=== PATIENT | female | born 1995 | race African-American/Black ===

== ENCOUNTER 2017-08-25 19:28 | Emergency (ER) | payer OTHER ==
[~2017-08-25 19:28] MED LIST: B12-1CHW CHEW; FERR1TAB36 PO; IBUP-232 PO
[2017-08-25 19:31] VITALS: BP 110/56; PULSE 87; RESP 16; TEMP 98.6; O2SAT 100
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
[2017-08-25] MEDS ORDERED: CYCL5TAB PO (21:29)
[2017-08-25] MEDS ORDERED: CYCLOBENZAPRINE HCL 10 MG TAB PO ONE (21:30)
== END 2017-08-25 22:01 | disposition home or self-care (01) ==
LOC: NEPD 19:28
DX: F32.9 Major depressive disorder, single episode, unspecified (principal); T14.8XXA Other injury of unspecified body region, initial encounter; X50.9XXA Other and unspecified overexertion or strenuous movements or postures, initial encounter; Y93.F9 Activity, other caregiving; Y92.129 Unspecified place in nursing home as the place of occurrence of the external cause; Y99.0 Civilian activity done for income or pay
CPT/HCPCS: 99283

== ENCOUNTER 2017-11-21 14:22 | Inpatient (IN) | payer MEDICAID, OTHER ==
[~2017-11-21] VITALS: Ht 160 cm; Wt 51.5 kg
[~2017-11-21 14:22] MED LIST changes: -B12-1CHW CHEW; +CYCL5TAB PO; -FERR1TAB36 PO; -IBUP-232 PO
[2017-11-21 15:38] LABS: AUTOMATED NEUTROPHIL # 1.8 TH/MM3 (1.8-7.7); BASOPHIL # 0.1 TH/MM3 (0-0.2); BASOPHIL % 1.4 % (0.0-2.0); EOSINOPHIL # 0.6 TH/MM3 (0-0.4); EOSINOPHIL % 12.9 % (0.0-4.0); HEMATOCRIT 29.4 % (35.0-46.0); LYMPH % 40.2 % (9.0-44.0); LYMPHOCYTE # 1.9 TH/MM3 (1.0-4.8); MEAN CELL VOLUME 74.3 FL (80.0-100.0); MEAN CORPUSCULAR HEMOGLOBIN 22.8 PG (27.0-34.0); MEAN CORPUSCULAR HGB CONC 30.7 % (32.0-36.0); MEAN PLATELET VOLUME 7.6 FL (7.0-11.0); MONO % 6.1 % (0.0-8.0); MONOCYTE # 0.3 TH/MM3 (0-0.9); NEUT % 39.4 % (16.0-70.0); PLATELET COUNT 435 TH/MM3 (150-450); RED BLOOD COUNT 3.96 MIL/MM3 (4.00-5.30); RED CELL DISTRIBUTION WIDTH 18.9 % (11.6-17.2); WHITE BLOOD COUNT 4.6 TH/MM3 (4.0-11.0)
[2017-11-21 15:50] LABS: BACTERIA, URINE OCC /hpf; BILIRUBIN, URINE NEG (NEG); BLOOD, URINE SMALL (NEG); GLUCOSE,URINE NEG (NEG); KETONE, URINE NEG (NEG); MUCUS URINE MANY /lpf (OCC); NITRITE,URINE NEG (NEG); SQUAMOUS EPITHELIAL CELL URINE 5 /hpf (0-5); URINE COLOR YELLOW (YELLW/STRAW); URINE LEUKOCYTE ESTERASE NEG (NEG)
[2017-11-21 15:53] LABS: ALBUMIN 3.9 GM/DL (3.4-5.0); ALT (GPT) 25 U/L (9-42); AST (GOT) 23 U/L (16-38); BICARBONATE 24.5 MEQ/L (21.0-32.0); BLOOD UREA NITROGEN 9 MG/DL (7-18); CALCIUM 8.9 MG/DL (8.5-10.1); CHLORIDE 106 MEQ/L (98-107); CREATININE 0.52 MG/DL (0.50-1.00); GLOMERULAR FILTRATION RATE 182 ML/MIN (>89); GLUCOSE,RANDOM 85 MG/DL (74-106); SODIUM (NA) 139 MEQ/L (136-145)
[2017-11-21 15:55] LABS: ALKALINE PHOSPHATASE 60 U/L (45-117); TOTAL BILIRUBIN ADULT 0.2 MG/DL (0.2-1.0); TOTAL PROTEIN 8.5 GM/DL (6.4-8.2)
[2017-11-21 15:57] LABS: ACETAMINOPHEN LESS THAN 2.0 MCG/ML (10.0-30.0)
--- NOTE | 2017-11-21 16:25 | PD ---
HPI Chief Complaint: Psychiatric Symptoms Time Seen by Provider: 14:46 Travel History International Travel<30 days: No Contact w/Intl Traveler<30days: No Traveled to known affect area: No History of Present Illness HPI 21-year-old female presents to the emergency department under Coulter act. She was Coulter acted by [facility] physician. According to the Coulter act reports the patient was "very tearful during the visit. The patient plan she would like to wreck her vehicle and to cause . She also states in the last year she has cut herself to harm herself and attempted to jump from a second-story window but her brother interrupted her and she didn't do it. She states several times during the exam she feels she has no purpose in life and feels she will be better ." Patient does admit to attempting suicide in the past. Says she was going to jump from a second story window. She reports being suicidal at this time. She says she doesn't have a current plan. Denies homicidal ideations. Says she hears herself talking to herself in her head. Denies visual hallucinations. Reports smoking marijuana. Denies tobacco or EtOH. Reports feeling depressed. Symptoms are aggravated by "everything." No known relieving factors. Symptoms are severe. Currently on menses. Has no current emergent medical complaints. No known allergies. No other modifying factors or associated signs and symptoms. PFSH Past Medical History Anemia: Yes Asthma: Yes Diminished Hearing: No Immunizations Current: Yes Social History Alcohol Use: No Tobacco Use: No Substance Use: Yes (Cannabis) Allergies-Medications (Allergen,Severity, Reaction): Coded Allergies: No Known Allergies (Verified , 08/25/17) Reported Meds & Prescriptions Reported Meds & Active Scripts Active Flexeril (Cyclobenzaprine HCl) 5 Mg Tab 5 Mg PO TID Review of Systems Except as stated in HPI: all other systems reviewed are Neg Physical Exam Narrative GENERAL: Well-nourished, well-developed black female patient, in no acute distress SKIN: Warm and dry. HEAD: Atraumatic. Normocephalic. EYES: Pupils equal and round. ENT: Mucosa pink and moist. NECK: Supple. Trachea midline. CARDIOVASCULAR: Regular rate and rhythm. No murmur appreciated. RESPIRATORY: No accessory muscle use. Clear to auscultation. Breath sounds equal bilaterally. GASTROINTESTINAL: Abdomen soft, non-tender, nondistended. Hepatic and splenic margins not palpable. Bowel sounds are active 4 quadrants. MUSCULOSKELETAL: No obvious deformities. No clubbing. No cyanosis. No edema. BACK: No CVA tenderness. NEUROLOGICAL: Awake and alert. No obvious cranial nerve deficits. Motor grossly within normal limits. Normal speech. Moves all extremities. 5/5 strength to all extremities. PSYCHIATRIC: Flat affect No delusional thought processes. No hallucinations. Data Data Orders Orders Complete Blood Count With Diff (11/21/17 14:44) Comprehensive Metabolic Panel (11/21/17 14:44) Urinalysis - C+S If Indicated (11/21/17 14:44) Ed Urine Pregnancytest Poc (11/21/17 14:44) Psych Screen (11/21/17 14:44) Drug Screen, Random Urine (11/21/17 14:44) Alcohol (Ethanol) (11/21/17 14:44) Salicylates (Aspirin) (11/21/17 14:44) Tylenol (Acetaminophen) (11/21/17 14:44) Labs Laboratory Tests Test 11/21/17 15:00 11/21/17 15:05 White Blood Count 4.6 TH/MM3 Red Blood Count 3.96 MIL/MM3 Hemoglobin 9.0 GM/DL Hematocrit 29.4 % Mean Corpuscular Volume 74.3 FL Mean Corpuscular Hemoglobin 22.8 PG Mean Corpuscular Hemoglobin Concent 30.7 % Red Cell Distribution Width 18.9 % Platelet Count 435 TH/MM3 Mean Platelet Volume 7.6 FL Neutrophils (%) (Auto) 39.4 % Lymphocytes (%) (Auto) 40.2 % Monocytes (%) (Auto) 6.1 % Eosinophils (%) (Auto) 12.9 % Basophils (%) (Auto) 1.4 % Neutrophils # (Auto) 1.8 TH/MM3 Lymphocytes # (Auto) 1.9 TH/MM3 Monocytes # (Auto) 0.3 TH/MM3 Eosinophils # (Auto) 0.6 TH/MM3 Basophils # (Auto) 0.1 TH/MM3 CBC Comment DIFF FINAL Differential Comment Blood Urea Nitrogen 9 MG/DL Creatinine 0.52 MG/DL Random Glucose 85 MG/DL Total Protein 8.5 GM/DL Albumin 3.9 GM/DL Calcium Level 8.9 MG/DL Alkaline Phosphatase 60 U/L Aspartate Amino Transf (AST/SGOT) 23 U/L Alanine Aminotransferase (ALT/SGPT) 25 U/L Total Bilirubin 0.2 MG/DL Sodium Level 139 MEQ/L Potassium Level 3.9 MEQ/L Chloride Level 106 MEQ/L Carbon Dioxide Level 24.5 MEQ/L Anion Gap 9 MEQ/L Estimat Glomerular Filtration Rate 182 ML/MIN Salicylates Level LESS THAN 1.7 MG/DL Acetaminophen Level LESS THAN 2.0 MCG/ML Ethyl Alcohol Level LESS THAN 3 MG/DL Urine Color YELLOW Urine Turbidity CLEAR Urine pH 6.0 Urine Specific Justin 1.022 Urine Protein TRACE mg/dL Urine Glucose (UA) NEG mg/dL Urine Ketones NEG mg/dL Urine Occult Blood SMALL Urine Nitrite NEG Urine Bilirubin NEG Urine Urobilinogen 2.0 MG/DL Urine Leukocyte Esterase NEG Urine RBC 1 /hpf Urine WBC 1 /hpf Urine Squamous Epithelial Cells 5 /hpf Urine Bacteria OCC /hpf Urine Mucus MANY /lpf Microscopic Urinalysis Comment CULT NOT INDICATED Urine Opiates Screen NEG Urine Barbiturates Screen NEG Urine Amphetamines Screen NEG Urine Benzodiazepines Screen NEG Urine Cocaine Screen NEG Urine Cannabinoids Screen POS MDM Medical Decision Making Medical Screen Exam Complete: Yes Emergency Medical Condition: Yes Medical Record Reviewed: Yes Differential Diagnosis Medical clearance for psychiatric evaluation, depression, suicidal ideation Narrative Course Patient presents under a Coulter act. Physical examination and vital signs are essentially unremarkable. Patient has no medical complaints to report. Psych screen has been ordered. If the laboratory results are unremarkable, the patient will be medically cleared for psychiatric evaluation and disposition. 1626: Hemoglobin 9 and consistent with past levels. Patient has history of anemia. Diagnosis Primary Impression: Medical clearance for psychiatric admission Condition: Stable Radhika Chung [employer] PICKER Nov 21, 2017 16:25
[2017-11-21 17:36] VITALS: BP 126/74; PULSE 60; RESP 18; TEMP 97.9; O2SAT 100
[2017-11-21 23:23] VITALS: BP 117/69; PULSE 72; RESP 16; TEMP 98.6; O2SAT 100
[2017-11-22 02:28] VITALS: BP 112/57; PULSE 64; RESP 17; TEMP 98.5; O2SAT 100
[2017-11-22 06:35] VITALS: BP 98/56; PULSE 63; RESP 17; TEMP 99.8; O2SAT 100
[2017-11-22 10:27] VITALS: BP 90/46; PULSE 67; RESP 16; TEMP 99.1; O2SAT 99
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
[2017-11-22] MEDS ORDERED: MAGNESIUM HYDROXIDE SUSP 30 ML CUP PO PRN (11:45)
[2017-11-22] MEDS ORDERED: ALUMINUM/MAGNESIUM/SIMETH 30 ML CUP PO PRN (11:45)
[2017-11-22] MEDS ORDERED: ACETAMINOPHEN 325 MG TAB PO PRN (11:45)
[2017-11-22 17:17] VITALS: BP 146/89; PULSE 120; RESP 20; TEMP 97.9; O2SAT 98
[2017-11-22 18:00] VITALS: BP 105/55; PULSE 69; RESP 18; TEMP 97.8; O2SAT 100
[2017-11-23 06:29] VITALS: BP 100/57; PULSE 80; RESP 16; TEMP 98; O2SAT 98
[2017-11-23 10:03] LABS: BICARBONATE 22.8 MEQ/L (21.0-32.0); BLOOD UREA NITROGEN 10 MG/DL (7-18); CALCIUM 8.9 MG/DL (8.5-10.1); CHLORIDE 101 MEQ/L (98-107); GLOMERULAR FILTRATION RATE 129 ML/MIN (>89); GLUCOSE,RANDOM 76 MG/DL (74-106); SODIUM (NA) 134 MEQ/L (136-145)
[2017-11-23 10:04] LABS: CHOLESTEROL 146 MG/DL (120-200)
[2017-11-23 10:14] LABS: CHOLESTEROL/ HDL RATIO 1.98 RATIO; HDL CHOLESTEROL 73.6 MG/DL (40.0-60.0); LDL CHOLESTEROL 63 MG/DL (0-99); TRIGLYCERIDES 49 MG/DL (42-150)
[2017-11-23 14:39] LABS: HEMOGLOBIN A1C 5.5 % (4.3-6.0)
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
[2017-11-23] MEDS ORDERED: ALBUTEROL SULFATE 90 MCG/ACT HFA 8 GM INHALER INH PRN (16:30)
[2017-11-23] MEDS ORDERED: hydrOXYzine HCL 50 MG TAB PO PRN (16:30)
[2017-11-23] MEDS ORDERED: traZODone HCL 50 MG TAB PO PRN (16:30)
[2017-11-23 16:56] LABS: % SATURATION IRON PROFILE 4.6 % (20-50); IRON (FE) 25 MCG/DL (50-170); TOTAL IRON BINDING CAPACITY 540 MCG/DL (250-450)
[2017-11-23 16:59] LABS: FERRITIN 5 NG/ML (8-252)
[2017-11-23] MEDS: FERROUS SULFATE 325 MG (65 MG ELEMENTAL IRON) TAB PO SCH (17:43)
[2017-11-23 18:25] VITALS: BP 107/59; PULSE 92; RESP 18; TEMP 98.2; O2SAT 100
[2017-11-24 06:08] VITALS: BP 92/46; PULSE 69; RESP 17; TEMP 98; O2SAT 99
[2017-11-24] MEDS: PARoxetine HCL 20 MG TAB PO SCH (09:00)
[2017-11-24] MEDS: FERROUS SULFATE 325 MG (65 MG ELEMENTAL IRON) TAB PO SCH ×2 (12:45→17:14)
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
[2017-11-24 17:14] VITALS: BP 98/52; PULSE 70; RESP 18; TEMP 98; O2SAT 99
[2017-11-25 05:58] VITALS: BP 108/54; PULSE 69; RESP 18; TEMP 97.9; O2SAT 97
[2017-11-25 08:46] LABS: BICARBONATE 27.5 MEQ/L (21.0-32.0); CALCIUM 8.8 MG/DL (8.5-10.1); CREATININE 0.61 MG/DL (0.50-1.00)
[2017-11-25] MEDS: PARoxetine HCL 20 MG TAB PO SCH (09:39)
[2017-11-25] MEDS: FERROUS SULFATE 325 MG (65 MG ELEMENTAL IRON) TAB PO SCH (11:58)
[2017-11-25] MEDS ORDERED: FERR325T20 PO (13:56)
[2017-11-25] MEDS ORDERED: PARO20TA2 PO (13:56)
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
== END 2017-11-25 16:45 | disposition home or self-care (01) | DRG 885 ==
LOC: NEPJ 14:22 → NEDA 11-22 11:45 → H260 11-22 17:28
PROVIDERS: ADMIT Student in an Organized Health Care Education/Training Program; ATTEND Student in an Organized Health Care Education/Training Program
DX: F32.1 Major depressive disorder, single episode, moderate (principal); R45.851 Suicidal ideations; E87.1 Hypo-osmolality and hyponatremia; F12.90 Cannabis use, unspecified, uncomplicated; F43.12 Post-traumatic stress disorder, chronic; D50.9 Iron deficiency anemia, unspecified; J45.909 Unspecified asthma, uncomplicated
CPT/HCPCS: 80048; 80053; 80061; 80307; 81001; 82728; 83036; 83540; 83550; 84443; 84703; 85025; 99285